=== PATIENT | male | born 1975 | race African-American/Black ===

== ENCOUNTER 2017-08-17 01:19 | Emergency (ER) | payer MEDICAID ==
[~2017-08-17] VITALS: Ht 188 cm; Wt 79.5 kg
[2017-08-17] MEDS ORDERED: HYDROCODONE/ACETAMINOPHEN 5/325MG TABLET PO STA (01:50)
[2017-08-17] MEDS ORDERED: BACITRACIN ZINC OINT UDPKT TOP ONE (02:00)
[2017-08-17 02:44] LABS: BASOPHILS % 0.8 % (0.0-2.0); EOSINOPHILS % 4.2 % (0.0-5.0); HEMATOCRIT. 45.4 % (42.0-52.0); HEMOGLOBIN. 14.9 g/dL (14.0-18.0); LYMPHOCYTES % 19.9 % (20.0-50.0); MEAN CORPUSCULAR VOLUME 88.2 fL (80.0-94.0); MEAN PLATELET VOLUME 7.8 fl (7.4-10.4); MONOCYTES % 7.1 % (2.0-8.0); PLATELET 183 x1000/uL (130-400); RED BLOOD CELL COUNT 5.15 mill/uL (4.7-6.1); RED CELL DISTRIBUTION WIDTH 14.3 % (11.6-14.6)
[2017-08-17 02:52] LABS: CHLORIDE 106 mEq/L (98-107)
[2017-08-17 02:55] LABS: PARTIAL THROMBOPLASTIN TIME 25.5 sec (23.4-31.0); PROTHROMBIN TIME 10.9 sec (9.4-11.6)
[2017-08-17 03:12] LABS: CLARITY URINE CLEAR (CLEAR); COLOR URINE YELLOW (YELLOW); KETONES URINE NEGATIVE (NEGATIVE); LEUKOCYTE ESTERASE URINE NEGATIVE (NEGATIVE); NITRITE URINE NEGATIVE (NEGATIVE); OCCULT BLOOD URINE NEGATIVE (NEGATIVE); PH URINE 5.5 (4.5-8.0); PROTEIN URINE NEGATIVE (NEGATIVE); SPECIFIC GRAVITY URINE 1.008 (1.005-1.030); UROBILINOGEN URINE 0.2 E.U./dL (0.2-1.0)
[2017-08-17] MEDS ORDERED: IOHEXOL-300 100 ML BOTTLE ONE (03:49)
[2017-08-17] MEDS ORDERED: DIAZEPAM 5 MG TABLET PO ONE (04:15)
[2017-08-17 04:32] LABS: BASOPHILS % 0.6 % (0.0-2.0); EOSINOPHILS % 1.3 % (0.0-5.0); HEMATOCRIT. 42.9 % (42.0-52.0); LYMPHOCYTES % 14.6 % (20.0-50.0); MEAN CORPUSCULAR HEMOGLOBIN 28.6 pg (28.0-32.0); MEAN CORPUSCULAR VOLUME 87.8 fL (80.0-94.0); MONOCYTES % 7.3 % (2.0-8.0); NEUTROPHILS % 76.2 % (40.0-76.0); PLATELET 188 x1000/uL (130-400); RED BLOOD CELL COUNT 4.88 mill/uL (4.7-6.1); RED CELL DISTRIBUTION WIDTH 13.7 % (11.6-14.6)
[2017-08-17 05:07] VITALS: BP 122/72
== END 2017-08-17 05:17 | disposition home or self-care (01) ==
LOC: ER 01:19
DX: S00.81XA Abrasion of other part of head, initial encounter (principal); S80.811A Abrasion, right lower leg, initial encounter; F17.200 Nicotine dependence, unspecified, uncomplicated; V43.62XA Car passenger injured in collision with other type car in traffic accident, initial encounter; Y93.89 Activity, other specified; Y92.488 Other paved roadways as the place of occurrence of the external cause
CPT/HCPCS: 36415; 70450; 72125; 74177; 80053; 81003; 82962; 83690; 85025; 85610; 85730; 86850; 86900; 86901; 99285; Q9967; Z7610

== ENCOUNTER 2021-03-12 09:17 | Emergency (ER) | payer SELFPAY ==
[~2021-03-12] VITALS: Ht 175.3 cm; Wt 71.0 kg
[2021-03-12] MEDS ORDERED: ONDANSETRON 4MG ODT PO ONE (09:45)
[2021-03-12] MEDS ORDERED: TETANUS, DIPHTHERIA, PERTUSSIS VAC/PF 0.5ML (>10YR OLD) IM ONE (09:45)
[2021-03-12] MEDS ORDERED: HYDROCODONE/ACETAMINOPHEN 5/325MG TABLET PO ONE (09:45)
[2021-03-12] MEDS ORDERED: BACITRACIN ZINC OINT UDPKT TOP ONE (09:45)
[2021-03-12] MEDS ORDERED: HYDR-4001 MT (11:43)
[2021-03-12] MEDS ORDERED: IBUP-2029 MT (11:43)
[2021-03-12 12:10] VITALS: BP 118/81
== END 2021-03-12 12:13 | disposition home or self-care (01) ==
LOC: ER 09:42
DX: S09.8XXA Other specified injuries of head, initial encounter (principal); S29.8XXA Other specified injuries of thorax, initial encounter; V49.49XA Driver injured in collision with other motor vehicles in traffic accident, initial encounter; Y93.89 Activity, other specified; Y92.89 Other specified places as the place of occurrence of the external cause; Y99.8 Other external cause status
CPT/HCPCS: 70450; 71250; 73140; 74176; 90471; 90715; 99284; Q0162